=== PATIENT | female | born 1950 | race Caucasian/White ===

== ENCOUNTER 2019-05-13 19:48 | Inpatient (IN) | payer BC, MEDICARE ==
[~2019-05-13] VITALS: Ht 163.8 cm; Wt 68.0 kg
[2019-05-13 20:32] LABS: BASOPHILS % (AUTO) 0.7 % (0-1); EOSINOPHILS # (AUTO) 0.5 X10'3 (0-0.9); HEMATOCRIT 36.8 % (35.0-45.0); HEMOGLOBIN 12.8 g/dl (12.0-16.0); LYMPHOCYTES # (AUTO) 2.3 X10'3 (1.1-4.8); LYMPHOCYTES % (AUTO) 37.7 % (21-51); MEAN CORPUSCULAR HEMOGLOBIN 30.7 PG (27.0-31.0); MEAN CORPUSCULAR HGB CONC 34.7 g/dL (33.0-36.5); MEAN CORPUSCULAR VOLUME 88.5 FL (78-98); MEAN PLATELET VOLUME 8.3 FL (7.4-10.4); MONOCYTES # (AUTO) 0.7 X10'3 (0-0.9); MONOCYTES % (AUTO) 10.7 % (2-12); NEUTROPHILS # (AUTO) 2.6 X10'3 (1.8-7.7); NEUTROPHILS % (AUTO) 42.9 % (42-75); PLATELET COUNT 267 X10'3 (140-440); RED BLOOD COUNT 4.16 X10'6 (4.20-5.60); RED CELL DISTRIBUTION WIDTH 13.5 % (11.5-14.5); WHITE BLOOD COUNT 6.1 X10'3 (4.5-11.0)
[2019-05-13 20:33] LABS: PARTIAL THROMBOPLASTIN TIME 28 SECONDS (22-32)
[2019-05-13 20:36] LABS: ALANINE AMINOTRANSFERASE 42 U/L (12-78); ALBUMIN 3.9 G/DL (3.4-5.0); ALBUMIN/GLOBULIN RATIO 1.1 (1.1-1.5); ALKALINE PHOSPHATASE 88 IU/L (46-116); ANION GAP 7 (8-16); ASPARTATE AMINO TRANSFERASE 28 U/L (10-37); BILIRUBIN,TOTAL 0.2 MG/DL (0.1-1.0); BLOOD UREA NITROGEN 13 MG/DL (7-18); BUN/CREATININE RATIO 17.6 (6.6-38.0); CALCIUM 8.7 MG/DL (8.5-10.1); CHLORIDE 106 MMOL/L (99-107); CREATININE 0.74 MG/DL (0.40-0.90); GLUCOSE 110 MG/DL (70-104); POTASSIUM 4.2 MMOL/L (3.5-5.1); SODIUM 137 MMOL/L (135-145); TOTAL CARBON DIOXIDE 23.6 MMOL/L (24-32); TOTAL PROTEIN 7.4 G/DL (6.4-8.2); eGFR 78 ML/MIN
[2019-05-13 20:48] LABS: LIPASE 158 U/L (73-393)
[2019-05-13] MEDS ORDERED: ATOR40TA7 PO (23:33)
[2019-05-13] MEDS ORDERED: ISOS10TA8 PO (23:36)
[2019-05-13] MEDS ORDERED: FURO-150 PO (23:40)
[2019-05-13] MEDS ORDERED: MONT10TA24 PO (23:41)
[2019-05-13] MEDS ORDERED: CARV-50 PO (23:42)
[2019-05-13] MEDS ORDERED: LISI-600 PO (23:44)
[2019-05-13] MEDS ORDERED: NITR0.4T51 SL (23:46)
[2019-05-13] MEDS ORDERED: FLUT100D2 INH (23:49)
[2019-05-13] MEDS ORDERED: VENL150C2 PO (23:50)
[2019-05-13] MEDS ORDERED: CLON-528 PO (23:51)
[2019-05-14] VITALS (9 sets, daily range): BP systolic 127–168; BP diastolic 47–81
[2019-05-14] MEDS ORDERED: nitroGLYCERIN 0.4mg SUBLingual tab SL SCH
[2019-05-14] MEDS ORDERED: acetaminophen 325mg tablet PO PRN ×2 (00:05)
[2019-05-14] MEDS ORDERED: ondansetron/PF 4mg/2ml inj IV PRN (00:05)
[2019-05-14] MEDS ORDERED: ipratropium/albuterol 3ml nebule NEB PRN (00:05)
[2019-05-14] MEDS ORDERED: potassium CL 10mEq/100ml bag 100 ML IV PRN (00:05)
[2019-05-14] MEDS ORDERED: magnesium 4gm in 100ml NS 100 ML IV PRN (00:05)
[2019-05-14] MEDS ORDERED: potassium Cl 20 mEq SR tablet PO PRN ×2 (00:05)
[2019-05-14] MEDS ORDERED: magnesium 2GM in 50ml NS 50 ML IV PRN (00:05)
[2019-05-14] MEDS ORDERED: docusate sod 100mg capsule PO PRN (00:05)
[2019-05-14] MEDS ORDERED: mag hydrox/Alum hydrox/simeth 30ml oral suspension PO PRN (00:05)
[2019-05-14] MEDS ORDERED: potassium Cl 40MEQ/NS 500ml 500 ML IV PRN (00:05)
[2019-05-14] MEDS ORDERED: aminophylline 250mg/10ml inj. IV PRN (00:10)
[2019-05-14] MEDS ORDERED: regadenoson 0.4mg/5ml syringe IV ONE ×2 (00:10→13:46)
[2019-05-14] MEDS ORDERED: metoprolol tartrate 1mg/ml inj IV PRN (00:10)
[2019-05-14] MEDS ORDERED: nitroGLYCERIN 0.4mg SUBLingual tab SL PRN (00:10)
[2019-05-14 03:36] LABS: CHOL/HDL RATIO 3.3 (0.00-4.99); CHOLESTEROL 181 MG/DL (0-200); HDL CHOLESTEROL 55 MG/DL (35-60); LDL CHOLESTEROL 100 MG/DL (50-100); TRIGLYCERIDES 180 MG/DL (20-135)
[2019-05-14] MEDS: venlafaxine XR 75mg capsule (Q24H) PO SCH (07:37)
[2019-05-14] MEDS: montelukast 10mg tablet PO SCH (07:37)
[2019-05-14] MEDS: enoxaparin 40mg/0.4ml syringe SQ SCH (07:39)
[2019-05-14] MEDS: carvedilol 6.25mg tablet PO SCH ×2 (08:00→19:23)
[2019-05-14] MEDS: lisinopril 20mg tablet PO SCH (08:00)
[2019-05-14] MEDS: ISOSORBIDE MONONITRATE 10 MG PO SCH (08:00)
[2019-05-14] MEDS ORDERED: clonazePAM 0.5mg tablet PO SCH (08:00)
[2019-05-14] MEDS ORDERED: furosemide 40mg/4ml inj IV SCH (08:00)
[2019-05-14] MEDS: K and/or MAG REPLACEMENT MC SCH (08:00)
[2019-05-14] MEDS: budesonide 0.5mg/2ml UD nebule IH SCH ×2 (09:18→19:07)
--- NOTE | 2019-05-14 10:10 | NUR ---
REMOVED LIPSCOMB PER DR OCHOA'S VERBAL ORDER
--- NOTE | 2019-05-14 10:16 | NUR ---
PT OT TO [facility] WITH ANURADHA BUCKNER
--- NOTE | 2019-05-14 11:21 | NUR ---
PT RETURNS FROM [facility]
--- NOTE | 2019-05-14 13:19 | NUR ---
PATIENT TO [facility] SC[facility]
[2019-05-14] MEDS ORDERED: aminophylline inj. 10 ML IV ONE (13:46)
[2019-05-14] MEDS: regadenoson 0.4mg/5ml syringe IV PRN ×2 (14:03→14:08)
--- NOTE | 2019-05-14 14:20 | NUR ---
Patient report received from Teena BUCKNER from the ER. Patient is currently in [facility].
--- NOTE | 2019-05-14 15:00 | NUR ---
[facility] Patient was oriented to room. Tele monitoring was initiated. All belongings were kept with patient. MRSA swab done. Patient is stable. VSS. All questions were answered.
[2019-05-14] MEDS ORDERED: ESOMEPRAZOLE 40 MG VIAL IV ONE (17:15)
[2019-05-14] MEDS: aspirin 81mg tablet.DR PO SCH (17:28)
--- NOTE | 2019-05-14 18:08 | NUR ---
[facility] documentation: I have reviewed and agree with all interventions, assessments performed and documented by Corina BUCKNER. [facility] Medication Administration: For this medication-pass time frame, all medication were reviewed, dispensed, administered and documented per hospital policy by Corina BUCKNER.
--- NOTE | 2019-05-14 18:09 | NUR ---
Problems reprioritized. Patient report given, questions answered & plan of care reviewed with Jessica BUCKNER.
--- NOTE | 2019-05-14 18:23 | NUR ---
Patient in room PCU 3014. I have received report from Alexandria BUCKNER and had the opportunity to ask questions and assume patient care.
[2019-05-14] MEDS: clonazePAM 0.5mg tablet PO SCH (19:23)
[2019-05-14] MEDS ORDERED: atorvastatin 20mg tablet PO SCH (21:00)
[2019-05-15 02:00] VITALS: BP 147/59
[2019-05-15 05:39] LABS: BASOPHILS % (AUTO) 0.6 % (0-1); EOSINOPHILS # (AUTO) 0.2 X10'3 (0-0.9); EOSINOPHILS % (AUTO) 4.1 % (0-6); HEMATOCRIT 38.7 % (35.0-45.0); HEMOGLOBIN 13.1 g/dl (12.0-16.0); LYMPHOCYTES # (AUTO) 1.7 X10'3 (1.1-4.8); LYMPHOCYTES % (AUTO) 30.1 % (21-51); MEAN CORPUSCULAR HEMOGLOBIN 30.2 PG (27.0-31.0); MEAN CORPUSCULAR HGB CONC 33.9 g/dL (33.0-36.5); MEAN PLATELET VOLUME 8.5 FL (7.4-10.4); MONOCYTES # (AUTO) 0.6 X10'3 (0-0.9); MONOCYTES % (AUTO) 10.4 % (2-12); NEUTROPHILS # (AUTO) 3.1 X10'3 (1.8-7.7); NEUTROPHILS % (AUTO) 54.8 % (42-75); PLATELET COUNT 277 X10'3 (140-440); RED BLOOD COUNT 4.35 X10'6 (4.20-5.60); RED CELL DISTRIBUTION WIDTH 13.2 % (11.5-14.5); WHITE BLOOD COUNT 5.6 X10'3 (4.5-11.0)
[2019-05-15 05:41] LABS: ALANINE AMINOTRANSFERASE 37 U/L (12-78); ALBUMIN 3.5 G/DL (3.4-5.0); ALKALINE PHOSPHATASE 73 IU/L (46-116); ANION GAP 9 (8-16); ASPARTATE AMINO TRANSFERASE 21 U/L (10-37); BILIRUBIN,TOTAL 0.4 MG/DL (0.1-1.0); BLOOD UREA NITROGEN 14 MG/DL (7-18); BUN/CREATININE RATIO 16.5 (6.6-38.0); CALCIUM 9.1 MG/DL (8.5-10.1); CHLORIDE 106 MMOL/L (99-107); CREATININE 0.85 MG/DL (0.40-0.90); GLUCOSE 103 MG/DL (70-104); MAGNESIUM 1.9 MG/DL (1.5-2.4); POTASSIUM 3.9 MMOL/L (3.5-5.1); SODIUM 139 MMOL/L (135-145); TOTAL CARBON DIOXIDE 23.8 MMOL/L (24-32); eGFR 66 ML/MIN
[2019-05-15 06:00] VITALS: BP_SYST 174; BP_SYST 95; BP_DIAS 44; BP_DIAS 84
--- NOTE | 2019-05-15 06:05 | NUR ---
Problems reprioritized. Patient report given, questions answered & plan of care reviewed with Dwight BUCKNER.
--- NOTE | 2019-05-15 06:05 | NUR ---
Patient in room PCU 3014. I have received report from SITA Lopez and had the opportunity to ask questions and assume patient care.
[2019-05-15] MEDS: carvedilol 6.25mg tablet PO SCH (07:15)
[2019-05-15] MEDS: montelukast 10mg tablet PO SCH (07:15)
[2019-05-15] MEDS: aspirin 81mg tablet.DR PO SCH (07:15)
[2019-05-15] MEDS: venlafaxine XR 75mg capsule (Q24H) PO SCH (07:15)
[2019-05-15] MEDS: lisinopril 20mg tablet PO SCH (07:15)
[2019-05-15] MEDS: K and/or MAG REPLACEMENT MC SCH (07:16)
[2019-05-15] MEDS: clonazePAM 0.5mg tablet PO SCH (07:16)
[2019-05-15] MEDS: enoxaparin 40mg/0.4ml syringe SQ SCH (07:16)
[2019-05-15] MEDS: ISOSORBIDE MONONITRATE 10 MG PO SCH ×2 (08:00→10:47)
[2019-05-15] MEDS ORDERED: ESOMEPRAZOLE 40 MG VIAL IV SCH (08:00)
[2019-05-15] MEDS: budesonide 0.5mg/2ml UD nebule IH SCH (08:53)
[2019-05-15 11:00] VITALS: BP 134/81
[2019-05-15] MEDS ORDERED: ASPI-1071 PO (11:17)
[2019-05-15] MEDS ORDERED: PANT-47 PO (11:17)
--- NOTE | 2019-05-15 12:26 | NUR ---
kelsey called into [facility] pharmacy
--- NOTE | 2019-05-15 13:06 | NUR ---
Pt discharged IV and tele DC'd. Stable for transfer per MD. [facility] [address] Edcuated on meds, follow-up and chest pain.
[2019-05-15] MEDS ORDERED: carVEDilol 12.5mg tablet PO SCH (20:00)
== END 2019-05-15 13:00 | disposition home or self-care (01) | DRG 392 ==
LOC: ER 19:50 → PCU 3S 05-14 14:12 → CMPBEDREQ 05-14 19:59
PROVIDERS: ADMIT Family Medicine; ATTEND Family Medicine
PROC: 4A02XM4 Measurement of Cardiac Total Activity, External Approach (ICD-10-PCS; principal; 2019-05-14)
PROC: 3E033HZ Introduction of Radioactive Substance into Peripheral Vein, Percutaneous Approach (ICD-10-PCS; 2019-05-14)
DX: K21.9 Gastro-esophageal reflux disease without esophagitis (principal); I50.22 Chronic systolic (congestive) heart failure; K51.90 Ulcerative colitis, unspecified, without complications; E89.0 Postprocedural hypothyroidism; F41.9 Anxiety disorder, unspecified; I11.0 Hypertensive heart disease with heart failure; I25.10 Atherosclerotic heart disease of native coronary artery without angina pectoris; I48.91 Unspecified atrial fibrillation; K29.70 Gastritis, unspecified, without bleeding; Z82.3 Family history of stroke; Z86.73 Personal history of transient ischemic attack (TIA), and cerebral infarction without residual deficits; Z90.710 Acquired absence of both cervix and uterus; Z90.49 Acquired absence of other specified parts of digestive tract; Z88.2 Allergy status to sulfonamides; Z79.899 Other long term (current) drug therapy; Z87.891 Personal history of nicotine dependence
CPT/HCPCS: 36415; 71045; 78452; 80053; 80061; 83690; 83735; 83880; 84484; 85025; 85610; 85730; 87070; 93005; 93017; 93306; 94640; 94760; 96372; 99285; A9500; G0378; J0280; J1650; J7626

== ENCOUNTER 2019-07-18 16:14 | Emergency (ER) | payer BC ==
[~2019-07-18] VITALS: Ht 165.1 cm; Wt 70.0 kg
[~2019-07-18 16:14] MED LIST: ASPI-1071 PO; ATOR40TA7 PO; CARV-50 PO; CLON-528 PO; FLUT100D2 INH; ISOS10TA8 PO; LISI-600 PO; MONT10TA24 PO; NITR0.4T51 SL; PANT-47 PO; VENL150C2 PO
[2019-07-18] MEDS ORDERED: normal saline 1000ML IV soln IVB ONE (16:50)
[2019-07-18] MEDS ORDERED: LORazepam 2 mg/ml vial IV ONE (16:50)
[2019-07-18] MEDS ORDERED: diphenhydrAMINE 50 mg/ml inj IV ONE (16:50)
[2019-07-18] MEDS ORDERED: proCHLORperazine 10 MG/2 ml inj IV ONE (16:50)
[2019-07-18 17:07] LABS: BASOPHILS % (AUTO) 0.3 % (0-1); EOSINOPHILS % (AUTO) 0.5 % (0-6); HEMATOCRIT 43.8 % (35.0-45.0); HEMOGLOBIN 14.9 g/dl (12.0-16.0); LYMPHOCYTES # (AUTO) 0.9 X10'3 (1.1-4.8); LYMPHOCYTES % (AUTO) 12.4 % (21-51); MEAN CORPUSCULAR HEMOGLOBIN 30.1 PG (27.0-31.0); MEAN CORPUSCULAR VOLUME 88.5 FL (78-98); MEAN PLATELET VOLUME 8.5 FL (7.4-10.4); MONOCYTES # (AUTO) 0.3 X10'3 (0-0.9); MONOCYTES % (AUTO) 4.4 % (2-12); NEUTROPHILS # (AUTO) 5.8 X10'3 (1.8-7.7); NEUTROPHILS % (AUTO) 82.4 % (42-75); PLATELET COUNT 244 X10'3 (140-440); RED BLOOD COUNT 4.95 X10'6 (4.20-5.60); RED CELL DISTRIBUTION WIDTH 13.9 % (11.5-14.5)
[2019-07-18 17:17] LABS: ALANINE AMINOTRANSFERASE 109 U/L (12-78); ALBUMIN 4.3 G/DL (3.4-5.0); ALBUMIN/GLOBULIN RATIO 1.3 (1.1-1.5); ALKALINE PHOSPHATASE 88 IU/L (46-116); ANION GAP 18 (8-16); ASPARTATE AMINO TRANSFERASE 74 U/L (10-37); BILIRUBIN,TOTAL 0.5 MG/DL (0.1-1.0); BLOOD UREA NITROGEN 13 MG/DL (7-18); BUN/CREATININE RATIO 11.9 (6.6-38.0); CALCIUM 8.6 MG/DL (8.5-10.1); CHLORIDE 98 MMOL/L (99-107); CREATININE 1.09 MG/DL (0.40-0.90); GLUCOSE 127 MG/DL (70-104); POTASSIUM 3.6 MMOL/L (3.5-5.1); SODIUM 136 MMOL/L (135-145); TOTAL CARBON DIOXIDE 20.3 MMOL/L (24-32); TOTAL PROTEIN 7.7 G/DL (6.4-8.2); eGFR 50 ML/MIN
[2019-07-18 17:20] LABS: PARTIAL THROMBOPLASTIN TIME 25 SECONDS (22-32)
[2019-07-18 17:25] LABS: LIPASE 100 U/L (73-393); MAGNESIUM 1.4 MG/DL (1.5-2.4)
[2019-07-18] MEDS ORDERED: magnesium 2GM in 50ml NS 50 ML IV ONE (18:35)
[2019-07-18 18:42] LABS: CLARITY,URINE CLEAR (Clear); COLOR,URINE YELLOW (Yellow); GLUCOSE, URINE NEGATIVE (Neg); KETONES,URINE NEGATIVE (Neg); LEUKOCYTE ESTERASE ,URINE NEGATIVE (Neg); NITRITES, URINE NEGATIVE (Neg); OCCULT BLOOD,URINE NEGATIVE (Neg); PROTEIN,URINE NEGATIVE (Neg); UROBILINOGEN,URINE 0.2 E.U/dL (0.2-1.0)
[2019-07-18 18:43] LABS: UA COLLECTION TYPE CLN CATCH MIDSTREAM
[2019-07-18 18:44] LABS: ETHANOL < 0.010 GM/DL (0.0-0.010)
[2019-07-18 18:47] LABS: URINE AMPHETAMINE SCREEN NEGATIVE (Neg); URINE BARBITUATE SCREEN NEGATIVE (Neg); URINE BENZODIAZEPINES SCREEN NEGATIVE (Neg); URINE CANNABINOID SCREEN NEGATIVE (Neg); URINE COCAINE SCREEN NEGATIVE (Neg); URINE METHADONE SCREEN NEGATIVE (Neg); URINE OPIATE SCREEN NEGATIVE (Neg); URINE PHENCYCLIDINE SCREEN NEGATIVE (Neg)
[2019-07-18] MEDS ORDERED: ONDA4TAB6 PO (19:52)
[2019-07-18] MEDS ORDERED: ISOS10TA8 PO (19:52)
[2019-07-18 20:23] VITALS: BP 152/88
== END 2019-07-18 20:27 | disposition home or self-care (01) ==
LOC: ER 16:15
DX: R11.2 Nausea with vomiting, unspecified (principal); R07.89 Other chest pain; R10.84 Generalized abdominal pain; I48.91 Unspecified atrial fibrillation; I11.0 Hypertensive heart disease with heart failure; I50.9 Heart failure, unspecified; Z86.73 Personal history of transient ischemic attack (TIA), and cerebral infarction without residual deficits; Z88.2 Allergy status to sulfonamides; Z79.82 Long term (current) use of aspirin; Z79.899 Other long term (current) drug therapy
CPT/HCPCS: 36415; 71045; 80053; 80305; 80320; 81003; 83690; 83735; 83880; 84484; 85025; 85610; 85730; 93005; 96361; 96365; 96366; 96375; 99284; J0780; J1200; J2060; J3475; J7040

== ENCOUNTER 2020-01-10 21:27 | Observation (INO) | payer BC, MEDICARE ==
[~2020-01-10] VITALS: Ht 162.6 cm; Wt 72.0 kg
[~2020-01-10 21:27] MED LIST changes: -MONT10TA24 PO; +MONT10TA26 PO; +ONDA4TAB6 PO
[2020-01-10 22:04] LABS: BASOPHILS % (AUTO) 0.6 % (0-1); EOSINOPHILS # (AUTO) 0.1 X10'3 (0-0.9); EOSINOPHILS % (AUTO) 2.1 % (0-6); HEMATOCRIT 40.4 % (35.0-45.0); HEMOGLOBIN 13.9 g/dl (12.0-16.0); LYMPHOCYTES # (AUTO) 1.9 X10'3 (1.1-4.8); LYMPHOCYTES % (AUTO) 28.6 % (21-51); MEAN CORPUSCULAR HEMOGLOBIN 30.6 PG (27.0-31.0); MEAN CORPUSCULAR HGB CONC 34.3 g/dL (33.0-36.5); MEAN CORPUSCULAR VOLUME 89.1 FL (78-98); MEAN PLATELET VOLUME 8.6 FL (7.4-10.4); MONOCYTES # (AUTO) 0.6 X10'3 (0-0.9); MONOCYTES % (AUTO) 9.5 % (2-12); NEUTROPHILS % (AUTO) 59.2 % (42-75); PLATELET COUNT 237 X10'3 (140-440); RED BLOOD COUNT 4.54 X10'6 (4.20-5.60); RED CELL DISTRIBUTION WIDTH 13.7 % (11.5-14.5); WHITE BLOOD COUNT 6.7 X10'3 (4.5-11.0)
[2020-01-10 22:13] LABS: ALANINE AMINOTRANSFERASE 197 U/L (12-78); ALBUMIN 3.9 G/DL (3.4-5.0); ALBUMIN/GLOBULIN RATIO 1.1 (1.1-1.5); ALKALINE PHOSPHATASE 93 IU/L (46-116); ANION GAP 10 (8-16); ASPARTATE AMINO TRANSFERASE 157 U/L (10-37); BILIRUBIN,TOTAL 0.4 MG/DL (0.1-1.0); BLOOD UREA NITROGEN 10 MG/DL (7-18); BUN/CREATININE RATIO 13.9 (6.6-38.0); CALCIUM 8.8 MG/DL (8.5-10.1); CHLORIDE 99 MMOL/L (99-107); CREATININE 0.72 MG/DL (0.40-0.90); GLUCOSE 96 MG/DL (70-104); POTASSIUM 3.9 MMOL/L (3.5-5.1); SODIUM 134 MMOL/L (135-145); TOTAL CARBON DIOXIDE 25.4 MMOL/L (24-32); TOTAL PROTEIN 7.4 G/DL (6.4-8.2); eGFR 80 ML/MIN
[2020-01-10] MEDS ORDERED: normal saline 1000ml 1,000 ML IV ONE (23:38)
[2020-01-10] MEDS ORDERED: nitroGLYCERIN 0.2mg/hour patch TD ONE (23:40)
[2020-01-10 23:56] LABS: PARTIAL THROMBOPLASTIN TIME 27 SECONDS (22-32)
[2020-01-11] VITALS (15 sets, daily range): BP systolic 115–195; BP diastolic 62–96
[2020-01-11 00:09] LABS: MAGNESIUM 1.8 MG/DL (1.5-2.4)
[2020-01-11] MEDS ORDERED: CARV-49 PO (00:23)
[2020-01-11] MEDS ORDERED: ASPI-611 PO (00:23)
[2020-01-11] MEDS ORDERED: QUET300T2 PO (00:29)
[2020-01-11] MEDS ORDERED: FENO134C PO (00:29)
[2020-01-11] MEDS ORDERED: FLO0.4C PO (00:29)
[2020-01-11] MEDS ORDERED: magnesium 4gm in 100ml NS 100 ML IV PRN (00:50)
[2020-01-11] MEDS ORDERED: nitroGLYCERIN 0.4mg SUBLingual tab SL PRN ×2 (00:50→02:15)
[2020-01-11] MEDS ORDERED: magnesium 2GM in 50ml NS 50 ML IV PRN (00:50)
[2020-01-11] MEDS ORDERED: acetaminophen 325mg tablet PO PRN ×2 (00:50)
[2020-01-11] MEDS ORDERED: magnesium Cl slow-release 64mg tablet PO PRN (00:50)
[2020-01-11] MEDS ORDERED: magnesium hydroxide 30ml (MOM) UD suspension PO PRN (00:50)
[2020-01-11] MEDS ORDERED: mag hydrox/Alum hydrox/simeth 30ml oral suspension PO PRN (00:50)
[2020-01-11] MEDS ORDERED: potassium CL 10mEq/100ml bag 100 ML IV PRN ×2 (00:50)
[2020-01-11] MEDS ORDERED: potassium Cl 20 mEq SR tablet PO PRN ×2 (00:50)
[2020-01-11] MEDS ORDERED: ondansetron/PF 4mg/2ml inj IV PRN (00:50)
--- NOTE | 2020-01-11 01:45 | NUR ---
pt placed on hospital bed for comfort.
[2020-01-11] MEDS ORDERED: metoprolol tartrate 1mg/ml inj IV PRN (02:15)
[2020-01-11] MEDS ORDERED: aminophylline 250mg/10ml inj. IV PRN (02:15)
--- NOTE | 2020-01-11 04:40 | NUR ---
Patient in room MED 313. I have received report from Miguel Ángel BUCKNER and had the opportunity to ask questions and assume patient care.
--- NOTE | 2020-01-11 04:50 | NUR ---
Pt arrived on unit in stable condition and was able to ambulate from ER bed to bed in room 313, pt has very pleasant demeanor.
[2020-01-11] MEDS ORDERED: regadenoson 0.4mg/5ml syringe IV ONE (06:00)
--- NOTE | 2020-01-11 06:14 | NUR ---
Problems reprioritized. Patient report given, questions answered & plan of care reviewed with Jesus BUCKNER.
[2020-01-11] MEDS ORDERED: budesonide 0.5mg/2ml UD nebule IH SCH (08:00)
[2020-01-11] MEDS ORDERED: lisinopril 20mg tablet PO SCH (08:00)
[2020-01-11] MEDS ORDERED: venlafaxine XR 75mg capsule (Q24H) PO SCH (08:00)
[2020-01-11] MEDS: carvedilol 6.25mg tablet PO SCH ×2 (08:00→09:07)
[2020-01-11] MEDS ORDERED: FENOFIBRATE MICRONIZED PO SCH (08:00)
[2020-01-11] MEDS ORDERED: clonazePAM 0.5mg tablet PO SCH (08:00)
[2020-01-11] MEDS ORDERED: enoxaparin 40mg/0.4ml syringe SQ SCH (08:00)
[2020-01-11] MEDS ORDERED: tamsulosin 0.4mg capsule PO SCH (08:00)
[2020-01-11] MEDS ORDERED: aspirin 81mg tablet.DR PO SCH (08:00)
[2020-01-11] MEDS ORDERED: ISOSORBIDE MONONITRATE PO SCH (08:00)
[2020-01-11] MEDS ORDERED: K and/or MAG REPLACEMENT MC SCH (08:00)
[2020-01-11] MEDS ORDERED: montelukast 10mg tablet PO SCH (08:00)
[2020-01-11] MEDS ORDERED: albuterol 2.5 MG/3 ML nebule NEB ONE (12:45)
[2020-01-11] MEDS ORDERED: regadenoson 0.4mg/5ml syringe IV PRN (14:00)
--- NOTE | 2020-01-11 15:01 | NUR ---
Patient in room MED 313. I have received report from SITA Lee and had the opportunity to ask questions and assume patient care. Patient down at [facility] medicine.
--- NOTE | 2020-01-11 16:09 | NUR ---
DR. STEINBERG PAGED PAGER ID: [phone] MESSAGE: [phone]: PLEASETZ - ROHAN NEGATIVE. ?D/C NURSE [id number] [id number]
--- NOTE | 2020-01-11 17:25 | NUR ---
Patient stable for discharge per MD orders. All discharge instructions and questions answered appropriately. No new medications prescribed. Patients belongings collected and sent with patient. PIV discontinued and cannula intact. monitoring analyst discontinued. Patient wheeled down to the lobby and left via private vehicle.
[2020-01-11] MEDS ORDERED: quetiapine 100mg tablet PO SCH (21:00)
[2020-01-11] MEDS ORDERED: atorvastatin 20mg tablet PO SCH (21:00)
== END 2020-01-11 17:25 | disposition home or self-care (01) ==
LOC: ER 21:27 → ED HOLD 01-11 01:35 → MED 3N 01-11 04:45
PROVIDERS: ADMIT Hospitalist; ATTEND Internal Medicine
DX: R07.89 Other chest pain (principal); I48.91 Unspecified atrial fibrillation; I25.110 Atherosclerotic heart disease of native coronary artery with unstable angina pectoris; I11.0 Hypertensive heart disease with heart failure; I50.9 Heart failure, unspecified; F32.9 Major depressive disorder, single episode, unspecified; Z86.73 Personal history of transient ischemic attack (TIA), and cerebral infarction without residual deficits; Z79.82 Long term (current) use of aspirin; Z79.51 Long term (current) use of inhaled steroids; Z79.899 Other long term (current) drug therapy; Z88.2 Allergy status to sulfonamides; Z88.5 Allergy status to narcotic agent
CPT/HCPCS: 36415; 71045; 78452; 80053; 83735; 83880; 84484; 85025; 85610; 85730; 87081; 93005; 93017; 93306; 94640; 94760; 96372; 99285; A9500; G0378; J7030; J1650; J2785; J7626

== ENCOUNTER 2020-04-15 21:00 | Emergency (ER) | payer BC, MEDICARE ==
[~2020-04-15] VITALS: Ht 162.6 cm; Wt 75.0 kg
[~2020-04-15 21:00] MED LIST changes: -ASPI-1071 PO; +ASPI-611 PO; +CARV-49 PO; -CARV-50 PO; +FENO134C PO; +FLO0.4C PO; -ONDA4TAB6 PO; -PANT-47 PO; +QUET300T2 PO
[2020-04-15] MEDS ORDERED: ondansetron 4mg rapidly disintigrating tab PO ONE (21:40)
[2020-04-15] MEDS ORDERED: HYDROcodone/acetaminophen 5mg/325mg tablet PO ONE (21:40)
[2020-04-15] MEDS ORDERED: HYDR-4383 PO (22:31)
[2020-04-15] MEDS ORDERED: ONDA4TAB6 PO (22:31)
[2020-04-15 22:50] VITALS: BP 182/97
== END 2020-04-15 23:00 | disposition home or self-care (01) ==
LOC: ER 21:01
DX: S22.41XA Multiple fractures of ribs, right side, initial encounter for closed fracture (principal); I48.91 Unspecified atrial fibrillation; I25.10 Atherosclerotic heart disease of native coronary artery without angina pectoris; I50.9 Heart failure, unspecified; R05 Cough; R06.7 Sneezing; I11.0 Hypertensive heart disease with heart failure; Z72.89 Other problems related to lifestyle; Z86.73 Personal history of transient ischemic attack (TIA), and cerebral infarction without residual deficits; Z88.5 Allergy status to narcotic agent; Z79.82 Long term (current) use of aspirin; Z79.899 Other long term (current) drug therapy; W18.30XA Fall on same level, unspecified, initial encounter; Y93.89 Activity, other specified; Y92.89 Other specified places as the place of occurrence of the external cause; Y99.8 Other external cause status
CPT/HCPCS: 71250; 74176; 99285

== ENCOUNTER 2023-04-20 14:38 | Emergency (ER) | payer BC ==
[~2023-04-20] VITALS: Ht 160 cm; Wt 75.0 kg
[~2023-04-20 14:38] MED LIST changes: -FENO134C PO; +FENO134C21 PO; +HYDR-4383 PO; -LISI-600 PO; +LISI20TA28 PO; +MONT-40 PO; -MONT10TA26 PO; +ONDA4TAB6 PO; -VENL150C2 PO; +VENL150C4 PO
[2023-04-20 14:43] VITALS: BP 163/89
[2023-04-20 16:13] LABS: BASOPHILS # (AUTO) 0.1 X10'3 (0-0.2); BASOPHILS % (AUTO) 0.7 % (0-1); EOSINOPHILS # (AUTO) 0.9 X10'3 (0-0.9); EOSINOPHILS % (AUTO) 10.9 % (0-6); HEMATOCRIT 37.8 % (35.0-45.0); HEMOGLOBIN 12.6 g/dl (12.0-16.0); LYMPHOCYTES # (AUTO) 2.5 X10'3 (1.1-4.8); LYMPHOCYTES % (AUTO) 32.3 % (21-51); MEAN CORPUSCULAR HEMOGLOBIN 29.3 PG (27.0-31.0); MEAN CORPUSCULAR HGB CONC 33.3 g/dL (33.0-36.5); MEAN PLATELET VOLUME 8.3 FL (7.4-10.4); MONOCYTES # (AUTO) 0.5 X10'3 (0-0.9); MONOCYTES % (AUTO) 6.8 % (2-12); NEUTROPHILS # (AUTO) 3.9 X10'3 (1.8-7.7); NEUTROPHILS % (AUTO) 49.3 % (42-75); PLATELET COUNT 290 X10'3 (140-440); RED BLOOD COUNT 4.29 X10'6 (4.20-5.60); RED CELL DISTRIBUTION WIDTH 14.1 % (11.5-14.5); WHITE BLOOD COUNT 7.9 X10'3 (4.5-11.0)
[2023-04-20 16:36] LABS: ALANINE AMINOTRANSFERASE 23 U/L (12-78); ALBUMIN 4.3 G/DL (3.4-5.0); ALBUMIN/GLOBULIN RATIO 1.1 (1.1-1.5); ALKALINE PHOSPHATASE 93 IU/L (46-116); ANION GAP 5 (8-16); ASPARTATE AMINO TRANSFERASE 17 U/L (10-37); BILIRUBIN,TOTAL 0.3 MG/DL (0.1-1.0); BLOOD UREA NITROGEN 17 MG/DL (7-18); BUN/CREATININE RATIO 13.5 (10.0-20.0); CALCIUM 9.8 MG/DL (8.5-10.1); CHLORIDE 105 MMOL/L (99-107); CREATININE 1.26 MG/DL (0.40-0.90); GLUCOSE 99 MG/DL (70-104); POTASSIUM 4.4 MMOL/L (3.5-5.1); SODIUM 137 MMOL/L (135-145); TOTAL CARBON DIOXIDE 27.3 MMOL/L (24-32); TOTAL PROTEIN 8.3 G/DL (6.4-8.2); eGFR 42 ML/MIN
[2023-04-20 16:41] LABS: ETHANOL < 0.010 GM/DL (0.0-0.010)
== END 2023-04-20 23:23 | disposition left against medical advice (07) ==
LOC: ER 14:39
DX: R51.9 Headache, unspecified (principal); Z20.822 Contact with and (suspected) exposure to COVID-19
CPT/HCPCS: 36415; 71045; 80053; 80320; 82140; 84484; 85025; 99281